=== PATIENT | female | born 1970 | race Caucasian/White ===

== ENCOUNTER 2019-04-05 07:15 | Outpatient (CLI) | payer OTHER, SELFPAY ==
[2019-04-05 07:53] LABS: Hemoglobin A1C 5.2 % (<5.7)
[2019-04-05 07:55] LABS: Basophils Percent Auto 0.3 % (0.2-1.2); Eosinophils Absolute Auto 0.2 K/mm3 (0-0.3); Eosinophils Percent Auto 2.7 % (0-4.4); Hematocrit 39.7 % (37.0-47.0); Hemoglobin 13.7 g/dL (12.0-15.0); Immature Granulocyte Absolute 0.01 K/mm3 (0.00-0.031); Immature Granulocyte Percent A 0.2 % (0-0.5); Lymphocytes Absolute Auto 2.49 K/mm3 (0.9-3.2); Lymphocytes Percent Auto 42.8 % (18.3-44.2); Mean Corpuscular HGB Conc 34.5 g/dl (32-36); Mean Corpuscular Volume 92.8 fl (80-100); Mean Platelet Volume 10.2 fl (7.4-10.4); Monocytes Absolute Auto 0.4 K/mm3 (0.1-0.6); Monocytes Percent Auto 6.9 % (2.6-8.5); Neutrophils Absolute Auto 2.7 K/mm3 (1.3-6.7); Neutrophils Percent Auto 47.1 % (45.5-73.1); Platelet Count Result 201 k/mm3 (150-375); Red Blood Count 4.28 M/mm3 (4.2-5.4); Red Cell Distribution Width 12.7 % (11.5-14.5); White Blood Count 5.8 K/mm3 (4.5-10.0)
[2019-04-05 07:58] LABS: Alanine Aminotransferase 26 U/L (4-35); Albumin Level 4.4 g/dL (3.5-5.1); Alkaline Phosphatase 61 U/L (38-126); Aspartate Amino Transferase 29 U/L (14-36); Bilirubin,Total 0.8 mg/dL (0.2-1.3); Blood Urea Nitrogen 16 mg/dL (7-17); Calcium 9.5 mg/dL (8.4-10.2); Carbon Dioxide 30 mmol/L (22-30); Chloride 101 mmol/L (98-107); Cholesterol 178 mg/dL (0-200); Estimated Glomerular Filt Rate > 60; Glucose 97 mg/dL (65-105); HDL Direct 43 mg/dL; Magnesium 2.1 mg/dL (1.6-2.3); Phosphorus 4.3 mg/dL (2.5-4.5); Potassium 4.6 mmol/L (3.4-5.0); Sodium 140 mmol/L (137-145); Triglycerides 105 mg/dL (<150)
[2019-04-05 08:09] LABS: LDL Cholesterol Direct 111 mg/dL
[2019-04-05 08:22] LABS: Iron 137 ug/dL (37-170)
[2019-04-05 08:28] LABS: Parathyroid Intact 10.9 pg/mL (7.5-53.5)
[2019-04-05 09:00] LABS: Percent Iron Saturation 41 % (20-50); Vitamin D 25 Hydroxy 46.1 ng/mL
[2019-04-05 09:05] LABS: Folic Acid > 20.0 ng/mL (2.76->20)
[2019-04-11 08:22] LABS: Vitamin B1 186
== END 2019-04-05 07:16 | disposition home or self-care (01) ==
PROVIDERS: PCP Internal Medicine
DX: R73.03 Prediabetes (principal)
CPT/HCPCS: 36415; 80053; 80061; 82306; 82607; 82728; 82746; 83036; 83540; 83550; 83735; 83970; 84100; 84425; 85025

== ENCOUNTER 2019-04-19 08:30 | Outpatient (RCR) | payer OTHER, SELFPAY ==
--- NOTE | 2019-03-20 10:26 | PTOPEVAL ---
Thank you for referring this patient to [facility]. Please review, sign, date and return this plan of care JANICE. Pt referred to therapy to address low back pain. She demonstrates decreased tolerance with daily activities due to increased pain, muscle weakness and decreased trunk motion due to pain. She requires additional skilled therapy to address noted impairments. Cont PT 2x/wk x 4 wk to achieve therapy goals. I agree with and certify that the following plan of care is medically necessary. Referring Physician Date Attending Provider: Darby Smith NP Referring Provider: *PT Outpatient Evaluation Start: 03/20/19 09:20 Freq: Status: Active Protocol: Document 03/20/19 09:20 CAP (Rec: 03/20/19 10:24 CAP [id number]) Therapy Assessment Status Assessment Status Assessment Status Evaluation Outpatient Past Medical History Cardiovascular History Hx Hypertension Yes Gastrointestinal History Hx Gastric Bypass Surgery Yes: 11/19/18 Musculoskeletal History Hx Back Pain Yes Hx Degenerative Disk Disease Yes: lumbar region Hx Orthopedic Surgery Yes: fredo wrist surgery, right ankle plantarficotomy Endocrine History Hx Hyperthyroidism Yes Evaluation Information Problem Diagnosis low back pain Onset 12/25 Cause unknown Subjective Information She was here a year ago for Query Text:As Reported By Patient/ her back pain. She performs Family stretching and fitness program on a regular basis. She had a gastroc sleeve surgery in November. She feels like she is walking funny and leaning. She reports her left hip locks with various motions. She is unable to state a particular activity that causes the hip joint to lock. States increased stiffness when getting out of a chair with prolonged sitting. Pain with rolling in bed. She reports sore buttock/back region with walking. She will at times have to sit vs stand for dressing activities. States she is more aware of her sitting posture after her last bout of therapy. Previous Treatments Previous Treatments For This Problem 1 year ago Prior Level of Function Activity Level (Last 3 Months)
--- NOTE | 2019-03-26 10:54 | PCPTNOTE ---
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
--- NOTE | 2019-04-04 14:41 | PCPTNOTE ---
Patient called & cancelled scheduled appointment this date due to being sick.
--- NOTE | 2019-04-19 09:24 | PTOPEVAL ---
Thank you for referring this patient to [facility]. Please review, sign, date and return this plan of care JANICE. Pt has received 5 therapy visits to address back pain. She demonstrates progress with trunk motion, pain and LE strength. She is progressing towards her therapy goals. She requires additional skilled therapy 1x/wk x 4 wk to achieve remaining goals. I agree with and certify that the following plan of care is medically necessary. Referring Physician Date Attending Provider: Darby Robertson NP Referring Provider: *PT Outpatient Re-Evaluation Start: 03/20/19 09:20 Freq: Status: Active Protocol: Document 04/19/19 08:28 CAP (Rec: 04/19/19 09:22 CAP [id number]) Therapy Assessment Status Assessment Status Assessment Status Re-evaluation Outpatient Past Medical History Cardiovascular History Hx Hypertension Yes Gastrointestinal History Hx Gastric Bypass Surgery Yes: 11/19/18 Musculoskeletal History Hx Back Pain Yes Hx Degenerative Disk Disease Yes: lumbar region Hx Orthopedic Surgery Yes: fredo wrist surgery, right ankle plantarficotomy Endocrine History Hx Hyperthyroidism Yes Evaluation Information Problem Diagnosis low back pain Onset 12/25 Cause unknown Additional Evaluation Detail She was here a year ago for her back pain. Subjective Information She continues to have back/ Query Text:As Reported By Patient/ buttock pain at times. She Family will cont to have increased pain with prolonged sitting or twisting to get out of truck. Her pain improves with movement or stretching. She has intermittent pain when rolling in bed. Pain Assessment Timing of Pain Assessment Timing of Pain Assessment Re-assessment Pain Scale Pain Scale Used Numeric (1 - 10) Self Report Pain Assessment Left Posterior Back Reported Pain Level 0 Pain Description Aching,Stabbing Pain Frequency Intermittent Current Pain Intensity 0 Greatest Pain Intensity 5 Pain Aggravating Factors Prolonged Position,Sitting Pain Behaviors None Pain Relief Interventions Used By Exercise,Position Change Patient Pain Score Pain Score 0: Self Report Cervical and Lumbar ROM Lumbar ROM Lumbar Flexion Active Floor Query Text:Hands to: Lumbar ROM WNL Lumbar Comments no pain with any trunk motion Cervical and Lumbar Muscle Testing
--- NOTE | 2019-04-23 10:49 | PCPTNOTE ---
Patient called & cancelled scheduled appointment this date due to unknown reason.
--- NOTE | 2019-04-29 13:29 | PCPTNOTE ---
Patient called & cancelled her remaining scheduled appointment this date due to work requirements.
--- NOTE | 2019-05-07 13:53 | PCPTNOTE ---
Admitting Provider: Attending Provider: Darby Robertson NP Patient:Ellen Sidhu Date of :1970 Patient has not returned for any further treatments since 04/19/2019, therefore she will be discharged from therapy at this time. Pt was seen for 5 therapy visits from 03/20/19-05/06/30. The goals have been not been achieved due to limited visits of therapy. Thank you for referring this patient to [facility]. Please review, sign, date and return this discharge summary JANICE. I have been updated about the patient's current status and I agree with discharge from the above service at this time. Referring Physician Date
== END 2019-05-08 10:43 | disposition home or self-care (01) ==
LOC: ANHPT 08:30
PROVIDERS: PCP Internal Medicine; Visit Provider Nurse Practitioner
DX: M54.5 Low back pain (principal)
CPT/HCPCS: 97110; 97112; 97140; 97162; 97530

== ENCOUNTER 2019-07-24 09:23 | Outpatient (CLI) | payer OTHER, SELFPAY ==
[2019-07-24 10:16] LABS: Basophils Percent Auto 0.4 % (0.2-1.2); Eosinophils Absolute Auto 0.1 K/mm3 (0-0.3); Eosinophils Percent Auto 1.8 % (0-4.4); Hematocrit 38.2 % (37.0-47.0); Hemoglobin 13.4 g/dL (12.0-15.0); Immature Granulocyte Absolute 0.01 K/mm3 (0.00-0.031); Immature Granulocyte Percent A 0.2 % (0-0.5); Mean Corpuscular HGB Conc 35.1 g/dl (32-36); Mean Corpuscular Hemoglobin 32.2 pg (26-34); Mean Corpuscular Volume 91.8 fl (80-100); Mean Platelet Volume 10.4 fl (7.4-10.4); Monocytes Absolute Auto 0.4 K/mm3 (0.1-0.6); Monocytes Percent Auto 7.2 % (2.6-8.5); Neutrophils Absolute Auto 2.4 K/mm3 (1.3-6.7); Neutrophils Percent Auto 41.4 % (45.5-73.1); Platelet Count Result 192 k/mm3 (150-375); Red Blood Count 4.16 M/mm3 (4.2-5.4); Red Cell Distribution Width 11.8 % (11.5-14.5); White Blood Count 5.7 K/mm3 (4.5-10.0)
[2019-07-24 10:38] LABS: Alanine Aminotransferase 28 U/L (4-35); Albumin Level 4.5 g/dL (3.5-5.1); Alkaline Phosphatase 53 U/L (38-126); Aspartate Amino Transferase 34 U/L (14-36); Bilirubin,Total 0.6 mg/dL (0.2-1.3); Blood Urea Nitrogen 15 mg/dL (7-17); Calcium 9.3 mg/dL (8.4-10.2); Carbon Dioxide 28 mmol/L (22-30); Chloride 104 mmol/L (98-107); Cholesterol 166 mg/dL (0-200); Estimated Glomerular Filt Rate > 60; Glucose 98 mg/dL (65-105); HDL Direct 53 mg/dL; Magnesium 2.1 mg/dL (1.6-2.3); Phosphorus 4.2 mg/dL (2.5-4.5); Potassium 4.2 mmol/L (3.4-5.0); Sodium 139 mmol/L (137-145); Triglycerides 60 mg/dL (<150)
[2019-07-24 10:48] LABS: LDL Cholesterol Direct 100 mg/dL
[2019-07-24 11:03] LABS: Hemoglobin A1C 5.4 % (<5.7)
[2019-07-24 11:09] LABS: Vitamin D 25 Hydroxy 51.6 ng/mL
[2019-07-24 11:30] LABS: Thyroid Stimulating Hormone 0.425 uIU/mL (0.465-4.680)
[2019-07-24 11:48] LABS: Parathyroid Intact 17.3 pg/mL (7.5-53.5)
[2019-07-24 12:08] LABS: Folic Acid > 20.0 ng/mL (2.76->20)
[2019-07-24 12:42] LABS: Iron 115 ug/dL (37-170); Percent Iron Saturation 38 % (20-50)
[2019-07-28 11:29] LABS: Vitamin B1 32 nmol/L (8-30)
== END 2019-07-24 09:24 | disposition home or self-care (01) ==
PROVIDERS: PCP Internal Medicine
DX: E03.9 Hypothyroidism, unspecified (principal); E66.01 Morbid (severe) obesity due to excess calories; Z98.84 Bariatric surgery status
CPT/HCPCS: 36415; 80053; 80061; 82306; 82607; 82728; 82746; 83036; 83540; 83550; 83735; 83970; 84100; 84425; 84443; 85025

== ENCOUNTER 2019-09-23 07:23 | Outpatient (CLI) | payer OTHER, SELFPAY ==
--- NOTE | ~2019-09-23 | MM_ITS ---
EXAMINATION: MM screening cammy BI w jordan HISTORY: Screening mammogram TECHNIQUE: Craniocaudal and mediolateral oblique 3-D tomosynthesis images were obtained and synthetic 2-D images were generated. CAD analysis was submitted and interpreted. COMPARISON: 08/27/2018, 08/08/2017 bilateral digital screening mammogram examinations BREAST PARENCHYMAL COMPOSITION: The breasts are almost entirely fatty. FINDINGS: There is no evidence of suspicious mass, calcification, or architectural distortion to sugg est malignancy in either breast. There has been no suspicious interval change. IMPRESSION: 1. No mammographic evidence of malignancy. 2. Recommend routine screening mammography in one year. BI-RADS Category 1: Negative Reviewed, dictated and finalized at location A.
== END 2019-09-23 07:24 | disposition home or self-care (01) ==
LOC: ANHIMG 07:26
PROVIDERS: PCP Internal Medicine; Visit Provider Obstetrics & Gynecology
DX: Z12.31 Encounter for screening mammogram for malignant neoplasm of breast (principal)
CPT/HCPCS: 77063; 77067

== ENCOUNTER 2019-10-23 07:53 | Outpatient (CLI) | payer OTHER, SELFPAY ==
[2019-10-23 09:18] LABS: Free T4 Free Thyroxine 0.85 ng/mL (0.78-2.19)
== END 2019-10-23 07:54 | disposition home or self-care (01) ==
LOC: ANHLAB 07:55
PROVIDERS: PCP Internal Medicine; Visit Provider Clinical Nurse Specialist
DX: E03.9 Hypothyroidism, unspecified (principal)
CPT/HCPCS: 36415; 84439; 84443

== ENCOUNTER 2020-03-18 14:31 | Outpatient (CLI) | payer OTHER, SELFPAY ==
--- NOTE | ~2020-03-18 | XR_ITS ---
XR hip LT min 3V w AP pelvis 03/18/2020 14:50 Indication: Left hip pain Procedure: 4 views left hip including AP pelvis Comparison: No prior studies for comparison. Findings: There is anatomic alignment. No fracture or traumatic malalignment. No soft tissue abnormal ity. Mild lower lumbar spondylosis. No osteolytic or osteoblastic lesions. Impression: 1: No significant bone or joint abnormality. Reviewed, dictated and finalized at location B. [facility] [employer] Impression: 1: No significant bone or joint abnormality.
== END 2020-03-18 14:32 | disposition home or self-care (01) ==
PROVIDERS: PCP Internal Medicine; Visit Provider Nurse Practitioner
DX: M25.559 Pain in unspecified hip (principal)
CPT/HCPCS: 73502

== ENCOUNTER 2020-05-04 13:30 | Outpatient (RCR) | payer OTHER, SELFPAY ==
--- NOTE | 2020-04-06 16:09 | PTOPEVAL ---
PHYSICAL THERAPY EVALUATION Thank you for referring Ellen Sidhu to [facility].? Sheila was evaluated for the dx of LBP. The patient is scheduled to be seen for therapy?1 x/week for 6 weeks. Please review, sign, date and return this plan of care JANICE. I agree with and certify that the following plan of care is medically necessary. Referring Physician Date Attending Provider: Darby Robertson NP *PT Outpatient Evaluation Start: 04/06/20 14:32 Freq: Status: Active Protocol: Document 04/06/20 14:32 MLV (Rec: 04/06/20 15:39 MLV [id number]) Assessment Status Evaluation Evaluation Information Problem Diagnosis LBP Onset chronic with flare up April 2019 Cause no event Additional Evaluation Detail Patient has been doing her exercises from therapy she started before COVID and wants to continue to further advance and help decrease pain better. 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 Patient walks for exercise when time allows and doesn't have increased pain then. Patient feels her hips are unstable and has back ache especially with walking. The pain is always worse in the evening and affects her sleep at times. Subjective Information Patient uses ice at her back Query Text:As Reported By Patient/ and left hip in evening after Family a full day and occasionally during the day. Diagnostic Tests MRI For This Problem Yes: fissures Previous Treatments Previous Treatments For This Problem started therapy for LBP right before COVID-had to stop Pain Assessment Timing of Pain Assessment Timing of Pain Assessment Assessment Pain Scale Pain Scale Used Numeric (1 - 10) Self Report Pain Assessment Bilateral Hip(s) Reported Pain Level 0 Pain Frequency Chronic Greatest Pain Intensity 9 Lower Back Reported Pain Level 0 Pain Frequency Chronic Greatest Pain Intensity 9 Pain Score Pain Score 0,0: Self Report Interventions Used Interventions Used By Clinicians Education,Exercise,Ice Pain Relief Interventions Used By Exercise,Ice,Position Change Sonu
--- NOTE | 2020-04-13 12:38 | PCPTNOTE ---
Patient called & cancelled scheduled appointment this date and on the due to exposure to COVID.
--- NOTE | 2020-05-11 08:40 | PCPTNOTE ---
Patient called & cancelled scheduled appointment this date due to father-in law falling and possibly broke arm needing to take to the doctor.
--- NOTE | 2020-05-18 11:46 | PCPTNOTE ---
Patient called & cancelled scheduled appointment this date due to taking grandpa to ER due to fluid on lungs.
--- NOTE | 2020-05-25 11:00 | PCPTNOTE ---
Patient called & cancelled scheduled appointment this date. Rescheduled.
--- NOTE | 2020-08-21 09:28 | PCPTNOTE ---
PHYSICAL THERAPY DISCHARGE Attending Provider: Darby Robertson NP Patient:Ellen Sidhu Date of :1970 Patient has not returned for any further treatments since 05/04/2020, therefore she will be discharged at this time. Patient?s initial visit was on 04/06/2020 14:30 and she had a total of 2 visits. The goals have not been met. Thank you for referring this patient to [facility]. Please review, sign, date and return this discharge summary JANICE. I have been updated about the patient's current status and I agree with discharge from the above service at this time. Referring Physician Date
== END 2020-07-05 23:59 | disposition home or self-care (01) ==
LOC: ANHPT 13:30
PROVIDERS: PCP Internal Medicine; Visit Provider Nurse Practitioner
DX: M54.5 Low back pain (principal)
CPT/HCPCS: 97110; 97161

== ENCOUNTER 2020-09-08 10:59 | Outpatient (CLI) | payer OTHER, SELFPAY ==
[2020-09-08 12:34] LABS: Free T4 Free Thyroxine 1.06 ng/mL (0.78-2.19)
[2020-09-10 07:05] LABS: Triiodothyronine T3 Free 2.5 pg/mL (2.3-4.2)
== END 2020-09-08 11:00 | disposition home or self-care (01) ==
LOC: ANHLAB 11:01
PROVIDERS: PCP Internal Medicine; Visit Provider Clinical Nurse Specialist
DX: E03.9 Hypothyroidism, unspecified (principal)
CPT/HCPCS: 36415; 84439; 84443; 84481

== ENCOUNTER 2020-09-21 10:23 | Outpatient (CLI) | payer OTHER, SELFPAY ==
[2020-09-24 12:52] LABS: NIL 0.03 IU/mL; Quantiferon TB Plus, 1T NEGATIVE (NEGATIVE)
== END 2020-09-21 10:24 | disposition home or self-care (01) ==
LOC: ANHLAB 10:25
PROVIDERS: PCP Internal Medicine; Visit Provider Clinical Nurse Specialist
DX: Z11.1 Encounter for screening for respiratory tuberculosis (principal)
CPT/HCPCS: 36415; 86480

== ENCOUNTER 2020-11-16 10:30 | Outpatient (RCR) | payer OTHER, SELFPAY ==
--- NOTE | 2020-10-14 11:26 | PTOPEVAL ---
PHYSICAL THERAPY EVALUATION AND PLAN OF CARE 10-14-20 Thank you for referring Ellen Sidhu to [facility].? She is scheduled to be seen for therapy? 1 x/week for 6 weeks. Due to her work, school and family commitments, she requests 1x/week only for treatment. Please review, sign, date and return this plan of care JANICE. I agree with and certify that the following plan of care is medically necessary. Referring Physician Date Attending Provider: Orly Shaffer NP *PT Outpatient Evaluation Document 10/14/20 10:30 ERIN (Rec: 10/14/20 11:26 ERIN [id number]) Past Medical History Source of Past Medical History Recalled from Previous Visit, Confirmed with Patient/Family Neurological History Hx Neurological Disorders No Significant History Cardiovascular History Hx Hypertension Yes: monitoring- ? increased due to increase pain Respiratory History Hx Respiratory Disorders No Significant History Gastrointestinal History Hx Gastric Bypass Surgery Yes: 11/19/18 Genitourinary History Hx Genitourinary Disorders No Significant History Musculoskeletal History Hx Back Pain Yes: chronic Hx Degenerative Disk Disease Yes: lumbar region Hx Orthopedic Surgery Yes: fredo wrist surgery, right ankle plantarfasciotomy Hx Other Musculoskeletal Disorders Yes: chronic, constant headaches Endocrine History Hx Hypothyroidism Yes: meds HEENT History Hx HEENT Disorders No Significant History Other History Hx Other Medical Conditions Yes: have had covid vaccine Evaluation Information Problem Diagnosis lumbar radiculopathy Onset August 2020 Subjective Information have chronic back pain, Query Text:As Reported By Patient/ gradual increase in pain, more Family pinch and pain in back, with slouching forward; every day stretch when get out of bed, usually helped, now does not help the pain anymore; L leg gives out and have to catch self with arm on wall or furniture; have not fallen to the ground; had steroid pack -- did not help much; have new gabapentin script, taken 5 days; Diagnostic Tests X-Rays For This Problem Yes: L hip negative; mild lumbar spondylosis MRI For This Problem No: insurance denied- have to have PT prior to MRI Other Tests For This Problem No Previous Treatm
--- NOTE | 2020-11-02 13:47 | PCPTNOTE ---
Patient called & cancelled scheduled appointment this date due to daughter needing to be picked up. Her daughter is not feeling well.
--- NOTE | 2020-11-23 11:53 | PCPTNOTE ---
pt called and canceled due to taking her grandfather to hospital;
--- NOTE | 2020-12-11 13:42 | PCPTNOTE ---
PHYSICAL THERAPY DISCHARGE 12-11-20 Attending Provider: Orly Shaffer NP Patient:Ellen Sidhu Date of :1970 Ms. Sidhu has not returned for any further treatments since 11/16/2020, therefore she will be discharged at this time. She received 6 PT sessions from October 14 to November 16, for the diagnosis of lumbar radiculopathy. She called and canceled 3 appointments. THe goals were not assessed. Thank you for referring Sheila to [facility]. Please review, sign, date and return this discharge summary JANICE. I have been updated about the patient's current status and I agree with discharge from the above service at this time. Referring Physician Date
== END 2020-12-11 15:45 | disposition home or self-care (01) ==
LOC: ANHPT 10:30
PROVIDERS: PCP Internal Medicine; Visit Provider Nurse Practitioner
DX: M54.16 Radiculopathy, lumbar region (principal)
CPT/HCPCS: 97012; 97014; 97110; 97161; G0283

== ENCOUNTER 2021-09-23 12:11 | Outpatient (CLI) | payer OTHER, SELFPAY ==
[2021-09-23 13:06] LABS: Basophils Percent Auto 0.6 % (0.2-1.2); Eosinophils Absolute Auto 0.2 K/mm3 (0-0.3); Eosinophils Percent Auto 2.7 % (0-4.4); Hematocrit 41.5 % (37.0-47.0); Hemoglobin 14.3 g/dL (12.0-15.0); Immature Granulocyte Absolute 0.02 K/mm3 (0.00-0.031); Immature Granulocyte Percent A 0.3 % (0-0.5); Immature Platelet Fraction Pct 4.4 % (0.9-11.2); Lymphocytes Absolute Auto 2.52 K/mm3 (0.9-3.2); Lymphocytes Percent Auto 40.6 % (18.3-44.2); Mean Corpuscular HGB Conc 34.5 g/dl (32-36); Mean Corpuscular Hemoglobin 32.7 pg (26-34); Mean Platelet Volume 10.5 fl (7.4-10.4); Monocytes Absolute Auto 0.6 K/mm3 (0.1-0.6); Neutrophils Absolute Auto 2.8 K/mm3 (1.3-6.7); Neutrophils Percent Auto 45.8 % (45.5-73.1); Platelet Count Result 148 k/mm3 (150-375); Red Blood Count 4.37 M/mm3 (4.2-5.4); Red Cell Distribution Width 12.4 % (11.5-14.5); White Blood Count 6.2 K/mm3 (4.5-10.0)
== END 2021-09-23 12:49 | disposition home or self-care (01) ==
PROVIDERS: PCP Internal Medicine
DX: D69.6 Thrombocytopenia, unspecified (principal)
CPT/HCPCS: 36415; 85025; 85055